=== PATIENT | female | born 2000 | race African-American/Black ===

== ENCOUNTER → 2023-09-18 07:00 | Outpatient (CLI) | payer OTHER, SELFPAY ==
--- NOTE | 2023-09-18 07:05 | DI.ECHO.S_ITS ---
[facility] +---------+ : : [address] : [place] : : : : [id number] : : : : Phone: [phone]---------+ Echocardiogram Report + + :Name: DAVID PEARSON Study Date: 09/18/2023 Height: 64 in : :[facility] ReadingLocation: Weight: 160 lb : : Gender: Female BSA: 1.8 m2 : :: 2000 Age: 23 yrs BP: 109/70 mmHg: :Reason For Study: GENERAL ADULT MEDICAL EXAMINATION : :Ordering Physician: MU, : :STEPHY Performed By: Pete Mercer : :Referring: STEPHY DOBBINS : + + Interpretation Summary 1) Normal left ventricular thickness and size with low normal systolic function (EF 50-55%). 2) Normal right ventricular size and function. 3) No significant valvular abnormalities. 4) No prior Echo available for comparison. Procedure: A two-dimensional transthoracic echocardiogram with color flow and Doppler was performed. The study quality was technically adequate. There is no prior echocardiogram noted for this patient. POOR EKG DUE TO INTERFERENCE. Left Ventricle: The left ventricle is normal in size and wall thickness. The ejection fraction is estimated to be 50-55%. There are no focal wall motion abnormalities. Right Ventricle: The right ventricle is normal in size and function. Atria: The left atrial size is normal. Right atrial size is normal. The interatrial septum grossly appears intact with no obvious evidence for an atrial septal defect. Mitral Valve: The mitral valve is normal in structure and function. There is no mitral valve stenosis. There is no mitral regurgitation noted. Aortic Valve: The aortic valve is trileaflet. There is no aortic valve stenosis. There is trace aortic regurgitation. Tricuspid Valve: The tricuspid valve is normal in structure and function. There is no tricuspid stenosis. There is trace tricuspid regurgitation. The right ventricular systolic pressure is estimated to be at least 23 mmHg based on an estimated right atrial pressure of 3 mm Hg. Pulmonic Valve: The pulmonic valve is not well visualized. There is no pulmonic valvular stenosis. There is trace pulmonic regurgitation. Great Vessels: The aortic root is normal size. The dimensions of the ascending aorta are normal. The IVC is of normal diameter and collapses greater than 50% with a sniff. This suggests a low right atrial pressure of 3 mm Hg. Pericardium/ Pleura There is no pericardial effusion. There is no pleural effusion. MMode/2D Measurements & Calculations LVIDd: 4.3 cm LVOT diam: 1.8 cm LVIDs: 2.9 cm Ao root diam: 2.3 cm FS: 33.6 % asc Aorta Diam: 2.4 cm IVSd: 0.77 cm Ao Arch Diam (Prox Trans): 1.8 cm LVPWd: 0.84 cm LV barraza. diameter/BSA (cm/m^2): 2.4 LV sys. diameter/BSA (cm/m^2): 1.6 LA A2 area: 16.8 cm2 RA long axis: 4.8 cm LA A4 area: 19.4 cm2 RA area: 15.1 cm2 LA length (vol): 5.5 cm RA vol: 40.2 ml LA vol: 50.3 ml RA : 22.6 ml/m2 LA vol index: 28.2 ml/m2 IVC diam: 1.5 cm RVD1 (basal): 3.3 cm RVD2 (mid): 3.0 cm TAPSE: 2.4 cm Doppler Measurements & Calculations Ao V2 max: 138.9 cm/sec LVOT Max Bartolo: 109.6 cm/sec Ao V2 mean: 96.4 cm/sec LV V1 max P.8 mmHg Ao max P.7 mmHg LV V1 VTI: 26.3 cm Ao mean P.3 mmHg ALEX(I,D): 2.1 cm2 Ao V2 VTI: 32.6 cm ALEX(V,D): 2.0 cm2 sev ratio: 0.81 ALEX indexed to BSA (cm^2/m^2): 1.2 MV E max bartolo: 88.6 cm/sec TR max bartolo: 226.0 cm/sec MV A max bartolo: 43.8 cm/sec TR max P.4 mmHg MV E/A: 2.0 PA V2 max: 123.8 cm/sec Med Peak E' Bartolo: 9.9 cm/sec PA V2 mean: 86.1 cm/sec E/E' med: 8.9 PA mean P.3 mmHg Lat Peak E' Bartolo: 17.6 cm/sec PA pr(Accel): 24.2 mmHg E/E' lat: 5.0 E/e' average: 7.0 MV dec time: 0.19 sec SV(LVOT): 68.1 ml Reading Physician:12:23 PM
== END ==
LOC: ECHO 07:03
PROVIDERS: Referring Provider Orthopaedic Surgery; Visit Provider Orthopaedic Surgery
DX: Z00.00 Encounter for general adult medical examination without abnormal findings (principal)
CPT/HCPCS: 93306